=== PATIENT | male | born 1995 | race Caucasian/White ===

== ENCOUNTER 2016-10-25 22:32 | Emergency (ER) | payer SELFPAY ==
[2016-10-25] MEDS ORDERED: EPINEPHRINE INJ/PF 1 MG/1 ML AMPULE ONE ×2 (22:54→22:57)
[2016-10-25] MEDS ORDERED: NORMAL SALINE 1000 ML 1,000 ML IV ONE (23:03)
[2016-10-25] MEDS ORDERED: METHYLPREDNISOLONE INJ 125 MG/2 ML SDV IV ONE (23:03)
[2016-10-25] MEDS ORDERED: DIPHENHYDRAMINE HCL 50 MG/ML VIAL IV ONE (23:03)
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
[2016-10-26 00:25] VITALS: BP 117/57
== END 2016-10-26 00:39 | disposition home or self-care (01) ==
LOC: ER 22:32
DX: T78.2XXA Anaphylactic shock, unspecified, initial encounter (principal); R06.02 Shortness of breath; R22.0 Localized swelling, mass and lump, head; F10.120 Alcohol abuse with intoxication, uncomplicated
CPT/HCPCS: 99284; 96374; 96375; J1200; J0171; J2930